=== PATIENT | female | born 1955 | race Caucasian/White ===

== ENCOUNTER 2021-01-31 08:49 | Emergency (ER) | payer OTHER ==
[~2021-01-31] VITALS: Ht 162.6 cm; Wt 67.1 kg
[2021-01-31] MEDS ORDERED: TRAMADOL HCL 50 MG TAB PO ONE (09:00)
[2021-01-31 12:50] VITALS: BP 129/84
== END 2021-01-31 12:51 | disposition home or self-care (01) ==
LOC: ER 09:35
DX: M79.672 Pain in left foot (principal); S92.352D Displaced fracture of fifth metatarsal bone, left foot, subsequent encounter for fracture with routine healing; L40.50 Arthropathic psoriasis, unspecified
CPT/HCPCS: 99283

== ENCOUNTER 2021-11-25 03:01 | Emergency (ER) | payer MEDICARE ==
[~2021-11-25] VITALS: Ht 162.6 cm; Wt 67.1 kg
[2021-11-25] MEDS ORDERED: ONDANSETRON HCL INJ 2MG/ML 2ML 2 MG/ML VIAL IV STA (03:03)
[2021-11-25] MEDS ORDERED: FAMOTIDINE 20 MG/2 ML VIAL IV STA (03:03)
[2021-11-25 03:25] LABS: BASOPHILS % 0.3 % (0.0-1.0); EOSINOPHILS # (AUTO) 0.1 (0.0-0.4); HEMATOCRIT 43.3 % (34.2-44.1); LYMPHOCYTES # (AUTO) 0.9 (1.0-3.2); LYMPHOCYTES % 14.1 % (18.0-39.1); MEAN CORPUSCULAR HEMOGLOBIN 27.5 pg (28-32); MEAN CORPUSCULAR HGB CONC 32.3 g/dL (31-35); MEAN CORPUSCULAR VOLUME 84.9 fL (81-99); MONOCYTES # (AUTO) 0.5 (0.2-0.8); MONOCYTES % 7.3 % (4.4-11.3); NEUTROPHILS # (AUTO) 5.1 (2.1-6.9); PLATELET COUNT 161 x10e3/uL (140-360); RED CELL DISTRIBUTION WIDTH 13.6 % (11.7-14.4)
[2021-11-25 03:47] LABS: ALBUMIN 3.8 g/dL (3.5-5.0); CALCIUM 8.7 mg/dL (8.4-10.2); CREATININE, SERUM 0.77 mg/dL (0.57-1.11)
[2021-11-25] MEDS ORDERED: SODIUM CHLORIDE 0.9% 50ML 50 ML ONE (04:04)
[2021-11-25] MEDS ORDERED: IOPAMIDOL 370 MG/ML 200 ML INFUS..BTL INJ ONE (04:04)
[2021-11-25 04:38] VITALS: BP 147/89
== END 2021-11-25 04:44 | disposition home or self-care (01) ==
LOC: ER 03:05
DX: R10.9 Unspecified abdominal pain (principal); R14.1 Gas pain; K74.5 Biliary cirrhosis, unspecified; M81.0 Age-related osteoporosis without current pathological fracture; L40.50 Arthropathic psoriasis, unspecified; Z88.6 Allergy status to analgesic agent
CPT/HCPCS: 36415; 74177; 80053; 83690; 85025; 93005; 99284; C9113; J2405; Q9967

== ENCOUNTER 2022-06-28 19:27 | Emergency (ER) | payer OTHER, MEDICARE ==
[~2022-06-28] VITALS: Ht 162.6 cm; Wt 67.1 kg
[2022-06-28] MEDS ORDERED: CYCLOBENZAPRINE5 MG PO (21:40)
[2022-06-28] MEDS: ORPHENADRINE CITRATE 30 MG/ML VIAL IM ONE (21:53)
[2022-06-28] MEDS: IBUPROFEN 600 MG TAB PO STA (21:53)
== END 2022-06-28 22:32 | disposition home or self-care (01) ==
LOC: ER 19:32
DX: S16.1XXA Strain of muscle, fascia and tendon at neck level, initial encounter (principal); S80.01XA Contusion of right knee, initial encounter; S80.212A Abrasion, left knee, initial encounter; V43.52XA Car driver injured in collision with other type car in traffic accident, initial encounter; Y92.488 Other paved roadways as the place of occurrence of the external cause; K76.9 Liver disease, unspecified; M81.0 Age-related osteoporosis without current pathological fracture; F41.9 Anxiety disorder, unspecified
CPT/HCPCS: 70450; 72125; 99283; J2360

== ENCOUNTER 2022-07-02 16:29 | Emergency (ER) | payer OTHER, MEDICARE ==
[~2022-07-02] VITALS: Ht 162.6 cm; Wt 67.1 kg
[~2022-07-02 16:29] MED LIST: CYCLOBENZAPRINE5 MG PO
[2022-07-02] MEDS ORDERED: THERAFLU FLU &1 EAC1 PO (17:13)
[2022-07-02] MEDS ORDERED: CEFDINIR300 MG PO (17:13)
[2022-07-02] MEDS ORDERED: IBUPROFEN200 MG PO (17:13)
== END 2022-07-02 17:26 | disposition home or self-care (01) ==
LOC: FSED 16:58
DX: J04.0 Acute laryngitis (principal); R05.9 Cough, unspecified; L40.50 Arthropathic psoriasis, unspecified; M81.0 Age-related osteoporosis without current pathological fracture; Z88.6 Allergy status to analgesic agent
CPT/HCPCS: 83518; 87400; 99283

== ENCOUNTER 2022-07-12 14:27 | Emergency (ER) | payer OTHER, MEDICARE ==
[~2022-07-12] VITALS: Ht 160 cm; Wt 65.8 kg
[~2022-07-12 14:27] MED LIST changes: +CEFDINIR300 MG PO; +IBUPROFEN200 MG PO; +THERAFLU FLU &1 EAC1 PO
[2022-07-12] MEDS ORDERED: MECLIZINE HCL 12.5 MG TAB PO ONE (15:45)
[2022-07-12] MEDS ORDERED: MECLIZINE HCL 12.5 MG TAB ONE (16:14)
[2022-07-12] MEDS ORDERED: PROVENTIL HFA6.7 GM INH (16:36)
[2022-07-12] MEDS ORDERED: MEDROL4 MG PO (16:37)
[2022-07-12] MEDS ORDERED: MECLIZINE HCL25 MG PO (16:38)
== END 2022-07-12 17:03 | disposition home or self-care (01) ==
LOC: FSED 14:39
DX: J98.01 Acute bronchospasm (principal); J06.9 Acute upper respiratory infection, unspecified; R42 Dizziness and giddiness; M81.0 Age-related osteoporosis without current pathological fracture; L40.50 Arthropathic psoriasis, unspecified; Z88.6 Allergy status to analgesic agent; Z79.899 Other long term (current) drug therapy
CPT/HCPCS: 71046; 81003; 87400; 99283

== ENCOUNTER 2022-09-29 05:16 | Emergency (ER) | payer OTHER, MEDICARE ==
[~2022-09-29] VITALS: Ht 160 cm; Wt 70.3 kg
[~2022-09-29 05:16] MED LIST changes: +MECLIZINE HCL25 MG PO; +MEDROL4 MG PO; +PROVENTIL HFA6.7 GM INH
[2022-09-29] MEDS ORDERED: CEFTRIAXONE 1 GM VIAL IM ONE (06:15)
[2022-09-29] MEDS ORDERED: PREDNISONE 20 MG TAB PO ONE (06:15)
[2022-09-29] MEDS ORDERED: VENTOLIN HFA18 GM INH (06:26)
[2022-09-29] MEDS ORDERED: PROBIOTIC & AC1 EACH PO (06:26)
[2022-09-29] MEDS ORDERED: LEVOFLOXACIN250 MG PO (06:26)
[2022-09-29] MEDS ORDERED: PROMETHAZINE-D118 ML PO (06:26)
[2022-09-29] MEDS ORDERED: PREDNISONE 20 MG TAB ONE (06:41)
[2022-09-29] MEDS ORDERED: CEFTRIAXONE 1 GM VIAL ONE (06:42)
[2022-09-29] MEDS ORDERED: LIDOCAINE 1% 10 ML MULTIDOSE VIAL IJ ONE (06:42)
== END 2022-09-29 06:46 | disposition home or self-care (01) ==
LOC: FSED 05:39
DX: R05.9 Cough, unspecified (principal); J20.9 Acute bronchitis, unspecified; J06.9 Acute upper respiratory infection, unspecified; R09.89 Other specified symptoms and signs involving the circulatory and respiratory systems; K76.9 Liver disease, unspecified; F41.9 Anxiety disorder, unspecified
CPT/HCPCS: 71046; 83518; 87400; 99283; J0696; J7512

== ENCOUNTER 2022-12-23 22:50 | Emergency (ER) | payer OTHER, MEDICARE ==
[~2022-12-23] VITALS: Ht 160 cm; Wt 68.0 kg
[~2022-12-23 22:50] MED LIST changes: +LEVOFLOXACIN250 MG PO; +PROBIOTIC & AC1 EACH PO; +PROMETHAZINE-D118 ML PO; +VENTOLIN HFA18 GM INH
[2022-12-24] MEDS ORDERED: POTASSIUM CHLORIDE 20 MEQ TAB CR PO STA (00:29)
[2022-12-24] MEDS ORDERED: POTASSIUM CHLORIDE 20 MEQ TAB CR PO ONE (00:57)
[2022-12-24 01:15] VITALS: O2SAT 97
== END 2022-12-24 01:30 | disposition home or self-care (01) ==
LOC: FSED 22:54
DX: R60.9 Edema, unspecified (principal); I73.9 Peripheral vascular disease, unspecified; F41.9 Anxiety disorder, unspecified; M81.0 Age-related osteoporosis without current pathological fracture; L40.50 Arthropathic psoriasis, unspecified
CPT/HCPCS: 80053; 83880; 85025; 85379; 93970; 99283